=== PATIENT | female | born 1930 | race Hispanic/Latino ===

== ENCOUNTER 2017-01-25 13:55 | Emergency (ER) | payer MEDICARE, OTHER ==
[2017-01-25 13:58] VITALS: BMI 31.2
[2017-01-25 14:03] VITALS: BP 144/73; PULSE 73; RESP 18; TEMP 98.7; O2SAT 95
--- NOTE | 2017-01-25 14:04 | ED PDOC ---
Arrival/HPI - General Chief Complaint: ENT Problem Time Seen by Provider: 01/25/17 14:03 Historian: Patient - History of Present Illness Narrative History of Present Illness (Text): 01/25/17 14:03 86 y/o female, pmh including htn and hyperlipidemia, nkda, c/o rt. ear pain x 1 month with no fall or trauma. Pt. was see by her own pmd which she had tried debrox with limited relief, here for the second evaluation, no headache or dizziness, no chest pain or shortness of breath, no palpitation, no night sweat , no rash, no other medical or psychological complaints. Past Medical History - Provider Review Nursing Documentation Reviewed: Yes - Infectious Disease Hx of Infectious Diseases: None - Cardiac Hx Hypertension: Yes - Pulmonary Hx Respiratory Disorders: No - Neurological Hx Neurological Disorder: No - HEENT Hx HEENT Disorder: No - Renal Hx Renal Disorder: No - Endocrine/Metabolic Hx Endocrine Disorders: No - Hematological/Oncological Hx Blood Disorders: No - Integumentary Hx Dermatological Disorder: No - Musculoskeletal/Rheumatological Hx Arthritis: Yes - Gastrointestinal Hx Gastrointestinal Disorders: No - Genitourinary/Gynecological Hx Genitourinary Disorders: No - Psychiatric Hx Psychophysiologic Disorder: No Hx Substance Use: No - Anesthesia Hx Anesthesia: No - Suicidal Assessment Feels Threatened In Home Enviroment: No Family/Social History - Physician Review Nursing Documentation Reviewed: Yes Family/Social History: Unknown Family HX Smoking Status: Never Smoked Hx Alcohol Use: No Hx Substance Use: No Allergies/Home Meds Allergies/Adverse Reactions: Allergies No Known Allergies Allergy (Verified 01/08/15 14:53) Review of Systems - Review of Systems Constitutional: absent: Fatigue, Fevers Eyes: absent: Vision Changes ENT: Other (rt. ear pain). absent: Hearing Changes Respiratory: absent: SOB, Cough Cardiovascular: absent: Chest Pain Gastrointestinal: absent: Abdominal Pain, Nausea, Vomiting Musculoskeletal: absent: Arthralgias, Back Pain Skin: absent: Rash, Pruritis Neurological: absent: Headache, Dizziness Physical Exam Vital Signs Reviewed: Yes Vital Signs Temp Pulse Resp BP Pulse Ox 01/25/17 14:02 98.7 F 73 18 144/73 95 Temperature: Afebrile Blood Pressure: Normal Pulse: Regular Respiratory Rate: Normal Appearance: Positive for: Well-Appearing, Non-Toxic, Comfortable Pain Distress: Mild Mental Status: Positive for: Alert and Oriented X 3 - Systems Exam Head: Present: Atraumatic, Normocephalic Pupils: Present: PERRL Extroacular Muscles: Present: EOMI Conjunctiva: Present: Normal Ears: Present: Other (Ears: rt. TM unable to visualized due to the ceruman impaction of the rt. auditory canal, lt. TM federico color and intact, bilateral auditory canals non-erythematous, no mastoid tenderness, hearing grossly decreased on the rt. ear. ) Mouth: Present: Moist Mucous Membranes Neck: Present: Normal Range of Motion Respiratory/Chest: Present: Clear to Auscultation, Good Air Exchange. No: Respiratory Distress, Accessory Muscle Use Cardiovascular: Present: Regular Rate and Rhythm, Normal S1, S2. No: Murmurs Abdomen: Present: Normal Bowel Sounds. No: Tenderness, Distention, Peritoneal Signs Back: Present: Normal Inspection Upper Extremity: Present: Normal Inspection. No: Cyanosis, Edema Lower Extremity: Present: Normal Inspection. No: Edema Neurological: Present: GCS=15, CN II-XII Intact, Speech Normal Skin: Present: Warm, Dry, Normal Color. No: Rashes Psychiatric: Present: Alert, Oriented x 3, Normal Insight, Normal Concentration Medical Decision Making ED Course and Treatment: 01/25/17 14:43 -irrigated the rt. ear with the normal saline with 100cc, all ear wax from the rt. ear removed completely. -Ear examination repeated: rt. TM federico color and intact, rt. auditory canal non -erythematous with no abrasion/laceration/signs of infection, , lt. TM federico color and intact, bilateral auditory canals non-erythematous, no mastoid tenderness, hearing grossly equal and the patient feels completely relief. -Discharge home with education on follow up with your own pmd and ENT for hearing test within 2 days, return to the ER for any new or worsening signs or symptoms. - PA / RN COMPLIANCE / Resident Statement MD/DO has reviewed & agrees with the documentation as recorded. Disposition/Present on Arrival - Present on Arrival Any Indicators Present on Arrival: No History of DVT/PE: No History of Uncontrolled Diabetes: No Urinary Catheter: No History of Decub. Ulcer: No History Surgical Site Infection Following: None - Disposition Have Diagnosis and Disposition been Completed?: Yes Diagnosis: Cerumen impaction Disposition: HOME/ ROUTINE Disposition Time: 14:45 Patient Plan: Discharge Condition: IMPROVED Additional Instructions: -Discharge home with education on follow up with your own pmd and ENT for hearing test within 2 days, return to the ER for any new or worsening signs or symptoms. Referrals: Nelly Curry, [Primary Care Provider] - Follow up with primary Rigoberto Bojorquez DO [Staff Provider] - Follow up with primary Mouna Arguello MD [Staff Provider] - Follow up with primary Forms: Respi (Faroese)
== END 2017-01-25 14:49 | disposition home or self-care (01) ==
LOC: ED 13:55
DX: H61.21 Impacted cerumen, right ear (principal); E78.5 Hyperlipidemia, unspecified; I10 Essential (primary) hypertension